=== PATIENT | female | born 2005 | race Caucasian/White ===

== ENCOUNTER 2025-04-30 19:49 | Emergency (ER) | payer SELFPAY ==
[2025-04-30 19:50] VITALS: BP 154/100
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
[2025-04-30] MEDS: MOTRIN 600 MG PO (22:54)
[2025-04-30 22:56] VITALS: BP 125/79
== END 2025-04-30 22:58 | disposition home or self-care (01) ==
LOC: EMR 19:49
PROVIDERS: EMERGENCY PHYSICIAN Emergency Medicine
DX: G44.319 Acute post-traumatic headache, not intractable (principal); S70.12XA Contusion of left thigh, initial encounter; S16.1XXA Strain of muscle, fascia and tendon at neck level, initial encounter; V43.52XA Car driver injured in collision with other type car in traffic accident, initial encounter; Y92.410 Unspecified street and highway as the place of occurrence of the external cause
CPT/HCPCS: 99283; 73564